=== PATIENT | male | born 1940 ===

== ENCOUNTER 2017-02-19 18:19 | Emergency (ER) | payer SELFPAY ==
[~2017-02-19] VITALS: Wt 100.0 kg
[2017-02-19] MEDS ORDERED: SOD CHLORIDE 0.9% 1,000 ML IV STA (18:40)
[2017-02-19] MEDS ORDERED: CEFEPIME 2GM/50 ML (PMX) 50 ML IVPB STA (18:43)
[2017-02-19] MEDS ORDERED: SODIUM CHLORIDE 0.9% 1L BAG IV* STA (18:43)
[2017-02-19 19:00] VITALS: BP 110/80; PULSE 121; RESP 17
[2017-02-19] MEDS ORDERED: VANCOMYCIN 1 GM (PMX) 250 ML IVPB ONE (19:00)
[2017-02-19 19:35] LABS: ALBUMIN 3.9 g/dl (3.3-4.9); ALBUMIN/GLOBULIN RATIO 1.34; BILIRUBIN,INDIRECT 0.9 mg/dl (0-1.1); BILIRUBIN,TOTAL 0.9 mg/dl (0.2-1.3); CALCIUM 9.8 mg/dl (8.4-10.2); CREATININE 1.83 mg/dl (0.61-1.24); TOTAL PROTEIN 6.8 g/dl (6.1-8.1)
[2017-02-19 19:49] LABS: TROPONIN-I 0.057 ng/ml (0.00-0.12)
[2017-02-19 20:00] LABS: BASOPHILS % 0.3 % (0.0-2.0); EOSINOPHILS % 0.1 % (0.0-7.0); HEMOGLOBIN 16.4 g/dl (14.0-18.0); LYMPHOCYTES # 0.7 10^3/ul (0.8-2.9); LYMPHOCYTES % 4.9 % (15.0-51.0); MEAN CORPUSCULAR HEMOGLOBIN 29.9 pg (29.0-33.0); MEAN CORPUSCULAR HGB CONC 32.8 g/dl (32.0-37.0); MEAN CORPUSCULAR VOLUME 91.1 fl (82.0-101.0); MEAN PLATELET VOLUME 10.3 fl (7.4-10.4); MONOCYTE # 1.3 10^3/ul (0.3-0.9); NEUTROPHIL # 12.3 10^3/ul (1.6-7.5); NEUTROPHILS % 85.1 % (39.0-77.0); PLATELET COUNT 211 10^3/UL (140-415); RED BLOOD COUNT 5.49 10^6/ul (4.70-6.10); RED CELL DISTRIBUTION WIDTH 12.8 % (11.5-14.5); WHITE BLOOD COUNT 14.4 10^3/ul (4.8-10.8)
--- NOTE | 2017-02-19 20:02 | RADRPT ---
PROCEDURE: XR Chest. CLINICAL INDICATION: Altered Mental Status TECHNIQUE: Single frontal view of the chest was obtained. COMPARISON: None available FINDINGS: The cardiomediastinal silhouette is mildly enlarged. Pulmonary vasculature is within normal limits. The lungs are clear. There is mild aortic calcification. No signs of pleural fluid or pneumothorax are seen. The osseous structures and soft tissues are unre markable. IMPRESSION: 1. Mild cardiomegaly. 2. Mild aortic calcification. 3. Hypoventilatory examination. No visualized consolidation or edema. RPTAT: HBST .Kwasi Obando MD, MD Date Time Electronically viewed and signed by .Kwasi Obando MD, on 02/19/2017 20:01 .T/
[2017-02-19 20:14] LABS: INR 1.15; PROTIME 14.7 Sec (12.2-14.2); PT RATIO 1.1
[2017-02-19 20:15] LABS: PARTIAL THROMBOPLASTIN TIME 26.9 Sec (25.0-35.0)
[2017-02-19 20:21] LABS: ADD UMIC YES; UR ASCORBIC ACID NEGATIVE (NEGATIVE); UR BILIRUBIN (Dip) NEGATIVE (NEGATIVE); UR BLOOD (Dip) NEGATIVE (NEGATIVE); UR CLARITY CLOUDY (CLEAR); UR COLOR YELLOW (YELLOW); UR GLUCOSE (Dip) 2+ mg/dL (NEGATIVE); UR KETONES (Dip) TRACE mg/dL (NEGATIVE); UR LEUKOCYTE ESTERASE (Dip) NEGATIVE Leu/ul (NEGATIVE); UR MUCUS MANY /HPF (NONE SEEN); UR NITRITE (Dip) NEGATIVE (NEGATIVE); UR RBC 0 /HPF (0-5); UR SPECIFIC GRAVITY (Dip) 1.021 (1.003-1.030); UR TOTAL PROTEIN (Dip) 1+ mg/dl (NEGATIVE); UR UROBILINOGEN (Dip) NEGATIVE (NEGATIVE)
[2017-02-19 20:34] LABS: BARBITURATES Negative (NEGATIVE); BENZODIAZEPINES Negative (NEGATIVE); CANNABINOIDS Negative (NEGATIVE)
[2017-02-19 20:35] LABS: COCAINE Negative (NEGATIVE); OPIATES Negative (NEGATIVE)
--- NOTE | 2017-03-05 02:07 | EN ---
Date/Time of Note Date/Time of Note DATE: 03/05/17 TIME: 02:05 ER Progress Note Please disregard the labs done on this patient's account. The patient that was seen in the ER the day of this account registration was not Miguel Delgado. The patient was incorrectly registered by the registration personnel. Prior to knowledge of this, the patient in the ED had his blood tests sent under this patient's account. This patient was never actually seen in the ED. CHARLEEN VILLA MD Mar 05, 2017 02:07
== END 2017-02-19 23:17 | disposition left against medical advice (07) ==
LOC: EDBD 18:19 → EDUNIT# 18:19 → E/R 18:19
DX: Z53.21 Procedure and treatment not carried out due to patient leaving prior to being seen by health care provider (principal)
CPT/HCPCS: 71010; 80053; 80164; 80307; 81001; 82962; 83605; 84484; 85025; 85610; 85730; 87040; 87086; 93005; J0692; J3370; J7030